=== PATIENT | male | born 1935 | race Caucasian/White ===

== ENCOUNTER 2016-10-07 21:44 | Emergency (ER) | payer OTHER ==
[2016-10-07 21:54] VITALS: BP 152/61; PULSE 98; TEMP 97.9; BMI 42.0
--- NOTE | 2016-10-07 22:17 | PDOC ---
History of Present Illness - General History Source: Patient Exam Limitations: No Limitations - History of Present Illness Initial Comments: 10/07/16 22:57 The patient is an 81-year-old male, with a significant past medical history of HTN, COPD, and hyperlipidemia, who presents to the ED with shortness of breath that began a few hours ago. The patient states that he was sitting down eating dinner when he suddenly began to experience difficulty breathing. Upon examination, the patient reports having a productive cough. Pt does use cpap at night and 4-5 pillows to go to sleep. The patient denies any chest pain, palpitations, or diaphoresis. He denies any abdominal pain, nausea, or vomiting. He denies any numbness or tingling or calf pain. He denies any fever or headache. Social Hx: Pt reports a 60 pack year history. Pt rarely consumes alcohol. He denies any drug use. <Jessica Irene - Last Filed: 10/07/16 22:57> - General History Source: Patient <Cooper Griffiths - Last Filed: 10/08/16 00:03> - General Chief Complaint: Shortness of Breath Stated Complaint: DIFF. BREATHING Time Seen by Provider: 10/07/16 21:59 Past History <Jessica Irene - Last Filed: 10/07/16 22:57> - Past Medical History Anemia: No Asthma: No Cancer: Yes (PROSTATE) Cardiac Disorders: No CVA: No COPD: No CHF: No Dementia: No Diabetes: No GI Disorders: No Disorders: No HTN: Yes Hypercholesterolemia: Yes Liver Disease: No Seizures: No Thyroid Disease: No - Surgical History Abdominal Surgery: No Appendectomy: No Cardiac Surgery: No Cholecystectomy: No Neurologic Surgery: No Orthopedic Surgery: No - Psycho/Social/Smoking Cessation Hx Suicidal Ideation: No Smoking History: Current every day smoker Have you smoked in the past 12 months: Yes Number of Cigarettes Smoked Daily: 20 Information on smoking cessation initiated: No 'Breaking Loose' booklet given: 06/11/14 Hx Alcohol Use: Yes (wine with dinner) Drug/Substance Use Hx: No Substance Use Type: None Hx Substance Use Treatment: No <Cooper Griffiths - Last Filed: 10/08/16 00:03> - Past Medical History Allergies/Adverse Reactions: Allergies Allergy/AdvReac Type Severity Reaction Status Date / Time No Known Drug Allergies Allergy Verified 10/07/16 21:54 Home Medications: Ambulatory Orders Aspirin [Ecotrin] 81 mg PO DAILY 10/07/16 Atorvastatin Ca [Lipitor] 20 mg PO HS 10/07/16 Benazepril HCl 20 mg PO DAILY 10/07/16 Cholecalciferol (Vitamin D3) [Vitamin D3 -] 1,000 unit PO DAILY 10/07/16 Diltiazem Cd [Cardizem Cd -] 240 mg PO DAILY 10/07/16 Folic Acid 1 mg PO DAILY 10/07/16 Methylprednisolone [Medrol Dose Esau] 4 mg PO ASDIR #21 tablet 10/07/16 Tiotropium [place] [Spiriva] 1 inh IH DAILY 10/07/16 Review of Systems - Review of Systems Able to Perform ROS?: Yes Comments:: 10/07/16 22:59 CONSTITUTIONAL: Absent: fever, chills, diaphoresis, generalized weakness, malaise, loss of appetite HEENT: Absent: rhinorrhea, nasal congestion, throat pain, throat swelling, difficulty swallowing, mouth swelling, ear pain, eye pain, visual Changes CARDIOVASCULAR: Absent: chest pain, syncope, palpitations, irregular heart rate, lightheadedness , peripheral edema RESPIRATORY: Present: cough, shortness of breath, dyspnea with exertion Absent: orthopnea, wheezing, stridor, hemoptysis GASTROINTESTINAL: Absent: abdominal pain, abdominal distension, nausea, vomiting, diarrhea, constipation, melena, hematochezia GENITOURINARY: Absent: dysuria, frequency, urgency, hesitancy, hematuria, flank pain, genital pain MUSCULOSKELETAL: Absent: myalgia, arthralgia, joint swelling SKIN: Absent: rash, itching, pallor HEMATOLOGIC/IMMUNOLOGIC: Absent: easy bleeding, easy bruising, lymphadenopathy, frequent infections ENDOCRINE: Absent: unexplained weight gain, unexplained weight loss, heat intolerance, cold intolerance NEUROLOGIC: Absent: headache, focal weakness or paresthesias, dizziness, unsteady gait, seizure, mental status changes, bladder or bowel incontinence PSYCHIATRIC: Absent: anxiety, depression, suicidal or homicidal ideation, hallucinations. <Jessica Irene - Last Filed: 10/07/16 22:57> *Physical Exam - Vital Signs Last Vital Signs Temp Pulse Resp BP Pulse Ox 97.9 F 98 H 20 152/61 98 10/07/16 21:47 10/07/16 21:47 10/07/16 21:47 10/07/16 21:47 10/07/16 21:47 - Physical Exam Comments: 10/07/16 22:59 GENERAL: Well developed, well nourished. Awake and alert. No acute distress. HEENT: Normocephalic, atraumatic. PERRLA, EOMI. No conjunctival pallor. Sclera are non- icteric. Moist mucous membranes. Oropharynx is clear. NECK: Supple. Full ROM. No JVD. Carotid pulses 2+ and symmetric, without bruits. No thyromegaly. No lymphadenopathy. CARDIOVASCULAR: Regular rate and rhythm. No murmurs, rubs, or gallops. Distal pulses are 2+ and symmetric. PULMONARY: (+)Decreased breath sounds bilaterally. No wheezing, rales or rhonchi. ABDOMINAL: Soft. Non-tender. Non-distended. No rebound or guarding. No organomegaly. Normoactive bowel sounds. MUSCULOSKELETAL Normal range of motion at all joints. No bony deformities or tenderness. No CVA tenderness. EXTREMITIES: (+)Edema of ankles. No cyanosis. No clubbing. No calf tenderness. SKIN: Warm and dry. Normal capillary refill. No rashes. No jaundice. NEUROLOGICAL: Alert, awake, appropriate. PSYCHIATRIC: Cooperative. Good eye contact. Appropriate mood and affect. <Jessica Irene - Last Filed: 10/07/16 22:57> - Vital Signs Last Vital Signs Temp Pulse Resp BP Pulse Ox 97.9 F 98 H 20 152/61 98 10/07/16 21:47 10/07/16 21:47 10/07/16 21:47 10/07/16 21:47 10/07/16 21:47 <Cooper Griffiths - Last Filed: 10/08/16 00:03> ED Treatment Course - LABORATORY CBC & Chemistry Diagram: 10/07/16 22:48 10/07/16 22:48 - ADDITIONAL ORDERS Additional order review: 10/07/16 22:48 RBC 5.06 MCV 92.4 MCHC 34.2 RDW 14.3 MPV 8.0 Neutrophils % 74.6 Lymphocytes % 13.9 Monocytes % 9.3 Eosinophils % 1.4 Basophils % 0.8 <Jessica Irene - Last Filed: 10/07/16 22:57> - LABORATORY CBC & Chemistry Diagram: 10/07/16 22:48 10/07/16 22:48 <Cooper Griffiths - Last Filed: 10/08/16 00:03> *DC/Admit/Observation/Transfer - Attestations Scribe Attestion: 10/07/16 23:01 Documentation prepared by Jessica Irene, acting as director global medical affairs for Cooper Griffiths MD. <Jessica Irene - Last Filed: 10/07/16 22:57> - Discharge Dispostion Admit: No <Cooper Griffiths - Last Filed: 10/08/16 00:03> Diagnosis at time of Disposition: COPD exacerbation - Discharge Dispostion Disposition: HOME - Prescriptions Prescriptions: Methylprednisolone [Medrol Dose Esau] 4 mg PO ASDIR #21 tablet - Referrals Referrals: Leopoldo Chapin MD [Primary Care Provider] - - Patient Instructions Printed Discharge Instructions: DI for Chronic Obstructive Pulmonary Disease Additional Instructions: Take medication as directed. Follow up with Dr. Us in the next few days.
[2016-10-07] MEDS ORDERED: methylPREDNISolone NA SUCC 125 MG/2 ML VIAL IVPB ONE (22:22)
[2016-10-07] MEDS ORDERED: ALBUTEROL SO4 2.5/IPRATROPIUM 0.5 INH SOL 3 ML VIAL.NEB. NEB ONE ×2 (22:22→22:59)
[2016-10-07] MEDS ORDERED: MAGNESIUM SULF 50% (8.12 MEQ/2 ML-1 GM VIAL) IVPB ONE (22:23)
[2016-10-07 22:52] LABS: BASOPHIL 0.8 % (0-2.0); EOSINOPHIL 1.4 % (0-4.5); MCH 31.6 pg (25.7-33.7); MCHC 34.2 g/dl (32.0-35.9); MEAN CELL VOLUME 92.4 fl (80-96); NEUTROPHILS 74.6 % (42.8-82.8); PLATELET COUNT 197 K/MM3 (134-434); RDW 14.3 % (11.9-15.9); WHITE BLOOD COUNT 14.7 K/mm3 (4.0-10.0)
[2016-10-07] MEDS ORDERED: MAGNESIUM SULF 50% (8.12 MEQ/2 ML-1 GM VIAL) ONE (22:59)
[2016-10-07] MEDS ORDERED: methylPREDNISolone NA SUCC 125 MG/2 ML VIAL ONE (23:00)
[2016-10-07 23:07] LABS: INR 1.06 (0.82-1.09); PROTHROMBIN TIME (PATIENT) 11.7 SEC (9.98-11.88)
[2016-10-07 23:21] LABS: ALBUMIN 3.7 g/dl (3.4-5.0); ANION GAP 8 (8-16); BILIRUBIN,TOTAL 0.4 mg/dL (0.2-1.0); CALCIUM 8.9 mg/dL (8.5-10.1); CO2 30 mmol/L (21-32); CREATININE 0.8 mg/dL (0.7-1.3); GLUCOSE,RANDOM 123 mg/dL (74-106); SGOT/AST 18 U/L (15-37); SGPT/ALT 30 U/L (12-78); TOT PROT 7.4 g/dl (6.4-8.2)
[2016-10-07 23:24] LABS: ALK PHOS 122 U/L (45-117); CPK 120 IU/L (39-308); TROPONIN I < 0.02 ng/ml (0.00-0.05)
== END 2016-10-08 00:22 | disposition home or self-care (01) ==
LOC: JER 21:44
PROC: 3E033GC Introduction of Other Therapeutic Substance into Peripheral Vein, Percutaneous Approach (ICD-10-PCS; principal; 2016-10-07)
PROC: 3E0F7GC Introduction of Other Therapeutic Substance into Respiratory Tract, Via Natural or Artificial Opening (ICD-10-PCS; 2016-10-07)
DX: J44.1 Chronic obstructive pulmonary disease with (acute) exacerbation (principal); Z85.46 Personal history of malignant neoplasm of prostate; I10 Essential (primary) hypertension; E78.00 Pure hypercholesterolemia, unspecified
CPT/HCPCS: 36415; 71010-TC; 80053; 83735; 83880; 84484; 85025; 85610; 99282-25

== ENCOUNTER 2020-08-07 10:11 | Observation (INO) | payer OTHER ==
[2020-08-07 10:44] VITALS: BMI 45.7
[2020-08-07 11:55] LABS: BASO % 0.2 % (0-2.0); EOS % 1.7 % (0-4.5); HEMATOCRIT 38.4 % (35.4-49); LYMPH % 18.3 % (8-40); MCH 29.2 pg (25.7-33.7); MCHC 33.9 g/dl (32.0-35.9); MEAN CELL VOLUME 86.2 fl (80-96); MEAN PLT VOLUME 7.5 fl (7.5-11.1); MONO % 9.3 % (3.8-10.2); NEUT % 70.5 % (42.8-82.8); PLATELET COUNT 223 10^3/uL (134-434); RBC 4.45 M/mm3 (4.00-5.60); RDW 15.3 % (11.9-15.9); WHITE BLOOD COUNT 13.6 K/mm3 (4.0-10.0)
[2020-08-07 12:09] LABS: INR 1.06 (0.83-1.09); PROTHROMBIN TIME (PATIENT) 12.8 SEC (9.7-13.0)
[2020-08-07 12:12] LABS: ACTIVATED PTT 32.4 SECONDS (25.2-36.5)
[2020-08-07 12:20] LABS: CHLORIDE 104 mmol/L (98-107); SODIUM 138 mmol/L (136-145)
[2020-08-07 12:23] LABS: ALBUMIN 3.5 g/dl (3.4-5.0); ANION GAP 10 MMOL/L (8-16); BLOOD UREA NITROGEN 26.6 mg/dL (7-18); CO2 23 mmol/L (21-32); GLUCOSE,RANDOM 103 mg/dL (74-106)
[2020-08-07 12:27] LABS: CREATININE 1.2 mg/dL (0.55-1.3); SGOT/AST 39 U/L (15-37)
[2020-08-07 12:28] LABS: BILIRUBIN,TOTAL 0.6 mg/dL (0.2-1); TOT PROT 7.5 g/dl (6.4-8.2)
[2020-08-07 12:29] LABS: ALK PHOS 160 U/L (45-117)
[2020-08-07] MEDS ORDERED: AZITHROMYCIN IVPB 500 MG in DEXTROSE 5%-WATER - 250 ML IVPB ONE (12:41)
[2020-08-07 13:16] LABS: SGPT/ALT 23 U/L (13-61)
[2020-08-07 13:20] LABS: PH,URINE 5.5 (5.0-8.0); URINE APPEARANCE CLEAR; URINE BILIRUBIN NEGATIVE (NEGATIVE); URINE COLOR YELLOW; URINE GLUCOSE (UA) NEGATIVE (NEGATIVE); URINE KETONE NEGATIVE (NEGATIVE); URINE LEUK ESTERASE NEGATIVE (NEGATIVE); URINE NITRITE NEGATIVE (NEGATIVE); URINE PROTEIN NEGATIVE (NEGATIVE)
[2020-08-07] MEDS ORDERED: CEFTRIAXONE 1 GM/50 ML BAG ONE (13:45)
[2020-08-07] MEDS ORDERED: CEFTRIAXONE 1,000 MG in DEXTROSE 5%-WATER - 50 ML IVPB ONE (14:05)
[2020-08-07] MEDS ORDERED: AZITHROMYCIN IVPB 500 MG/250 ML BAG IVPB ONE (15:24)
[2020-08-07] MEDS ORDERED: ATORVASTATIN CA 40 MG TABLET (FP) ONE (21:57)
[2020-08-07] MEDS ORDERED: ATORVASTATIN CA 40 MG TABLET (FP) PO SCH (22:00)
[2020-08-07] MEDS ORDERED: PATIENT'S OWN MEDICATION (NON-FORMULARY) (Icosapent Ethyl [Vascepa] 1 GM Capsule) PO SCH (22:00)
[2020-08-08 07:39] LABS: HEMATOCRIT 41.7 % (35.4-49); HEMOGLOBIN 13.9 GM/dL (11.7-16.9); MCH 29.2 pg (25.7-33.7); MCHC 33.4 g/dl (32.0-35.9); MEAN CELL VOLUME 87.3 fl (80-96); MEAN PLT VOLUME 7.5 fl (7.5-11.1); PLATELET COUNT 221 10^3/uL (134-434); RBC 4.77 M/mm3 (4.00-5.60); RDW 15.6 % (11.9-15.9); WHITE BLOOD COUNT 12.1 K/mm3 (4.0-10.0)
[2020-08-08 07:55] LABS: CHLORIDE 103 mmol/L (98-107); SODIUM 137 mmol/L (136-145)
[2020-08-08 07:59] LABS: ALBUMIN 3.8 g/dl (3.4-5.0); ANION GAP 9 MMOL/L (8-16); CALCIUM 9.5 mg/dL (8.5-10.1); CO2 25 mmol/L (21-32); GLUCOSE,RANDOM 103 mg/dL (74-106)
[2020-08-08 08:02] LABS: BILIRUBIN,TOTAL 0.7 mg/dL (0.2-1); PHOSPHOROUS 3.3 mg/dL (2.5-4.9); SGOT/AST 25 U/L (15-37); SGPT/ALT 23 U/L (13-61)
[2020-08-08 08:04] LABS: ALK PHOS 139 U/L (45-117); TOT PROT 7.7 g/dl (6.4-8.2)
[2020-08-08] MEDS ORDERED: ASPIRIN COATED 81 MG TABLET.EC ONE (09:24)
[2020-08-08] MEDS ORDERED: LOSARTAN POTASSIUM 50 MG TABLET ONE (09:25)
[2020-08-08] MEDS ORDERED: FOLIC ACID 1 MG TABLET (FP) ONE (09:25)
[2020-08-08] MEDS ORDERED: HYDROCHLOROTHIAZIDE 25 MG TABLET (FP) ONE (09:25)
[2020-08-08] MEDS ORDERED: dilTIAZem HCL 60 MG TABLET ONE (09:25)
[2020-08-08] MEDS ORDERED: PT OWN MED DRAWER 7, Y5N ONE (09:27)
[2020-08-08 09:58] VITALS: TEMP 97.4
[2020-08-08] MEDS ORDERED: FOLIC ACID 1 MG TABLET (FP) PO SCH (10:00)
[2020-08-08] MEDS ORDERED: HYDROCHLOROTHIAZIDE 25 MG TABLET (FP) PO SCH (10:00)
[2020-08-08] MEDS ORDERED: LOSARTAN POTASSIUM 50 MG TABLET PO SCH (10:00)
[2020-08-08] MEDS ORDERED: ASPIRIN COATED 81 MG TABLET.EC PO SCH (10:00)
[2020-08-08] MEDS ORDERED: TIOTROPIUM BROMIDE 2.5 MCG (SPIRIVA) RESPIMAT INHALER IH SCH (10:00)
[2020-08-08 13:18] VITALS: BP 146/58; PULSE 99
[2020-08-08 13:41] LABS: CHOLESTEROL 125 mg/dL (50-200); HDL CHOLESTEROL 38 mg/dL (40-60); LDL CHOLESTEROL (ONLY DFH) 69 mg/dl (5-100); TRIGLYCERIDES 91 mg/dL (0-150)
== END 2020-08-08 13:30 | disposition home or self-care (01) ==
LOC: JER 10:11 → JERBED 12:41 → J4S 08-08 13:31
PROVIDERS: ATTEND Internal Medicine
PROC: 3E03329 Introduction of Other Anti-infective into Peripheral Vein, Percutaneous Approach (ICD-10-PCS; principal; 2020-08-07)
PROC: 3E0F7SF Introduction of Other Gas into Respiratory Tract, Via Natural or Artificial Opening (ICD-10-PCS; 2020-08-07)
DX: R07.89 Other chest pain (principal); J18.9 Pneumonia, unspecified organism; I10 Essential (primary) hypertension; E78.5 Hyperlipidemia, unspecified; E66.01 Morbid (severe) obesity due to excess calories; Z68.42 Body mass index [BMI] 45.0-49.9, adult; Z85.46 Personal history of malignant neoplasm of prostate; J44.9 Chronic obstructive pulmonary disease, unspecified; G47.33 Obstructive sleep apnea (adult) (pediatric); Z99.89 Dependence on other enabling machines and devices; Z87.891 Personal history of nicotine dependence; Z79.82 Long term (current) use of aspirin
CPT/HCPCS: 36415; 71045-TC-FY; 71275-TC; 80053; 80061; 81003; 82550; 82553; 83036; 83735; 84100; 84443; 84484; 85025; 85027; 85610; 85730; 87077; 87086; 93005; 93010; 93306-TC; 94640; 96365; 96367; 99285-25; C9803; G0378; Q9967; U0003; U0005

== ENCOUNTER 2021-03-28 00:53 | Observation (INO) | payer OTHER ==
[2021-03-28 02:08] LABS: BASO % 0.3 % (0-2.0); EOS % 0.4 % (0-4.5); HEMATOCRIT 33.7 % (35.4-49); HEMOGLOBIN 11.1 GM/dL (11.7-16.9); LYMPH % 7.9 % (8-40); MCH 29.3 pg (25.7-33.7); MCHC 32.9 g/dl (32.0-35.9); MEAN PLT VOLUME 7.7 fl (7.5-11.1); NEUT % 83.4 % (42.8-82.8); PLATELET COUNT 220 10^3/uL (134-434); RBC 3.79 M/mm3 (4.00-5.60); RDW 17.5 % (11.9-15.9); WHITE BLOOD COUNT 12.9 K/mm3 (4.0-10.0)
[2021-03-28 02:17] LABS: INR 1.14 (0.83-1.09); PROTHROMBIN TIME (PATIENT) 13.1 SEC (9.7-13.0)
[2021-03-28 02:19] LABS: ACTIVATED PTT 30.8 SECONDS (25.2-36.5)
[2021-03-28 02:34] LABS: CALCIUM 9.1 mg/dL (8.5-10.1)
[2021-03-28 02:35] LABS: ALBUMIN 3.5 g/dl (3.4-5.0); BLOOD UREA NITROGEN 25.4 mg/dL (7-18)
[2021-03-28 02:38] LABS: CREATININE 1.2 mg/dL (0.55-1.3)
[2021-03-28 02:40] LABS: BILIRUBIN,TOTAL 0.3 mg/dL (0.2-1); TOT PROT 7.3 g/dl (6.4-8.2)
[2021-03-28 06:02] LABS: HEMATOCRIT 32.5 % (35.4-49); HEMOGLOBIN 10.5 GM/dL (11.7-16.9); MCH 29.1 pg (25.7-33.7); MCHC 32.5 g/dl (32.0-35.9); MEAN CELL VOLUME 89.6 fl (80-96); PLATELET COUNT 216 10^3/uL (134-434); RBC 3.63 M/mm3 (4.00-5.60); RDW 17.4 % (11.9-15.9)
[2021-03-28] MEDS ORDERED: ONDANSETRON 4 MG/2 ML VIAL IVPUSH PRN (15:08)
[2021-03-28] MEDS ORDERED: ACETAMINOPHEN 325 MG TABLET (FP) PO PRN (15:08)
[2021-03-28 15:29] VITALS: BMI 42.7
[2021-03-28] MEDS ORDERED: SENNOSIDES 8.6MG TABLET (FP) PO PRN (18:41)
[2021-03-28] MEDS ORDERED: DOCUSATE NA 100 MG/10 ML UNIT-DOSE CUPS PO PRN (18:42)
[2021-03-28] MEDS ORDERED: LACTULOSE 20 GM/30 ML UDC (FOR ORAL USE ONLY) PO ONE (18:43)
[2021-03-28] MEDS: METOPROLOL TARTRATE 25 MG TABLET (FP) PO SCH (21:36)
[2021-03-28] MEDS: ATORVASTATIN CA 80 MG TABLET (FP) PO SCH (21:36)
[2021-03-28] MEDS: FAMOTIDINE 20 MG TABLET PO SCH (21:36)
[2021-03-29] MEDS: SODIUM CHLORIDE 1,000 ML IV SCH (09:09)
[2021-03-29] MEDS: FAMOTIDINE 20 MG TABLET PO SCH (09:09)
[2021-03-29] MEDS: FOLIC ACID 1 MG TABLET (FP) PO SCH (09:09)
[2021-03-29] MEDS: METOPROLOL TARTRATE 25 MG TABLET (FP) PO SCH ×2 (09:09→22:41)
[2021-03-29 09:30] LABS: HEMATOCRIT 32.1 % (35.4-49); HEMOGLOBIN 10.7 GM/dL (11.7-16.9); MCH 29.7 pg (25.7-33.7); MCHC 33.2 g/dl (32.0-35.9); MEAN CELL VOLUME 89.5 fl (80-96); MEAN PLT VOLUME 7.5 fl (7.5-11.1); PLATELET COUNT 210 10^3/uL (134-434); RBC 3.59 M/mm3 (4.00-5.60); WHITE BLOOD COUNT 11.5 K/mm3 (4.0-10.0)
[2021-03-29 09:46] LABS: CALCIUM 9.4 mg/dL (8.5-10.1)
[2021-03-29 09:47] LABS: BLOOD UREA NITROGEN 18.3 mg/dL (7-18)
[2021-03-29] MEDS ORDERED: PANTOPRAZOLE SODIUM 40 MG VIAL IVPUSH SCH (10:00)
[2021-03-29] MEDS ORDERED: POLYETHYLENE GLYCOL (HEALTHYLAX) 3350 17 GM PACKET PO SCH (10:00)
[2021-03-29] MEDS ORDERED: CLOPIDOGREL BISULFATE 75 MG TABLET (FP) PO SCH ×2 (10:00→12:15)
[2021-03-29] MEDS ORDERED: PSYLLIUM 5.85 GM PACKET PO SCH (10:00)
[2021-03-29] MEDS: MINERAL OIL ENEMA 133 ML ENEMA PR SCH (11:28)
[2021-03-29] MEDS: PANTOPRAZOLE 40 MG TABLET PO SCH (11:28)
[2021-03-29] MEDS ORDERED: FUROSEMIDE 40 MG TABLET (FP) PO SCH (12:15)
[2021-03-29] MEDS ORDERED: ASPIRIN 81 MG CHEWABLE TABLETS PO SCH (12:15)
[2021-03-29] MEDS: HYDROCORTISONE 2.5% TOPICAL CREAM 30 GM TUBE TP SCH ×2 (12:48→22:45)
[2021-03-29] MEDS: POLYETHYLENE GLYCOL (HEALTHYLAX) 3350 17 GM PACKET PO SCH ×2 (15:34→22:50)
[2021-03-29] MEDS: ATORVASTATIN CA 80 MG TABLET (FP) PO SCH (22:41)
[2021-03-30] MEDS: SODIUM CHLORIDE 1,000 ML IV SCH (01:00)
[2021-03-30] MEDS: POLYETHYLENE GLYCOL (HEALTHYLAX) 3350 17 GM PACKET PO SCH ×2 (06:19→13:26)
[2021-03-30 08:17] LABS: BASO % 0.5 % (0-2.0); EOS % 2.3 % (0-4.5); HEMATOCRIT 31.3 % (35.4-49); HEMOGLOBIN 10.2 GM/dL (11.7-16.9); LYMPH % 15.6 % (8-40); MCH 29.8 pg (25.7-33.7); MCHC 32.6 g/dl (32.0-35.9); MEAN CELL VOLUME 91.5 fl (80-96); MONO % 8.2 % (3.8-10.2); NEUT % 73.4 % (42.8-82.8); PLATELET COUNT 196 10^3/uL (134-434); RBC 3.42 M/mm3 (4.00-5.60); RDW 17.5 % (11.9-15.9); WHITE BLOOD COUNT 10.3 K/mm3 (4.0-10.0)
[2021-03-30 08:36] LABS: BLOOD UREA NITROGEN 13.6 mg/dL (7-18); CALCIUM 8.8 mg/dL (8.5-10.1)
[2021-03-30 08:41] LABS: BILIRUBIN,TOTAL 0.7 mg/dL (0.2-1); CREATININE 0.9 mg/dL (0.55-1.3); PHOSPHOROUS 2.8 mg/dL (2.5-4.9)
[2021-03-30 08:43] LABS: TOT PROT 6.2 g/dl (6.4-8.2)
[2021-03-30] MEDS ORDERED: ASPIRIN 81 MG CHEWABLE TABLETS PO SCH (10:00)
[2021-03-30] MEDS ORDERED: CLOPIDOGREL BISULFATE 75 MG TABLET (FP) PO SCH (10:00)
[2021-03-30] MEDS: METOPROLOL TARTRATE 25 MG TABLET (FP) PO SCH (10:20)
[2021-03-30] MEDS: PANTOPRAZOLE 40 MG TABLET PO SCH (10:23)
[2021-03-30] MEDS: FOLIC ACID 1 MG TABLET (FP) PO SCH (10:23)
[2021-03-30] MEDS: HYDROCORTISONE 2.5% TOPICAL CREAM 30 GM TUBE TP SCH (10:39)
[2021-03-30] MEDS: MINERAL OIL ENEMA 133 ML ENEMA PR SCH ×2 (10:39→13:11)
[2021-03-30 14:00] VITALS: BP 145/68; PULSE 72; TEMP 97.4
[2021-03-31] MEDS ORDERED: PANTOPRAZOLE 20 MG TABLET PO SCH (10:00)
== END 2021-03-30 16:15 | disposition home or self-care (01) ==
LOC: JER 00:53 → JERBED 07:11 → J7W 13:47
PROVIDERS: ADMIT Internal Medicine
PROC: 3E033GC Introduction of Other Therapeutic Substance into Peripheral Vein, Percutaneous Approach (ICD-10-PCS; principal; 2021-03-28)
PROC: 3E0337Z Introduction of Electrolytic and Water Balance Substance into Peripheral Vein, Percutaneous Approach (ICD-10-PCS; 2021-03-28)
DX: K59.00 Constipation, unspecified (principal); K62.5 Hemorrhage of anus and rectum; E78.5 Hyperlipidemia, unspecified; G47.33 Obstructive sleep apnea (adult) (pediatric); I35.0 Nonrheumatic aortic (valve) stenosis; I11.0 Hypertensive heart disease with heart failure; I25.10 Atherosclerotic heart disease of native coronary artery without angina pectoris; Z95.5 Presence of coronary angioplasty implant and graft; Z85.46 Personal history of malignant neoplasm of prostate; E66.01 Morbid (severe) obesity due to excess calories; Z68.41 Body mass index [BMI] 40.0-44.9, adult; Z87.891 Personal history of nicotine dependence; Z95.2 Presence of prosthetic heart valve; D64.9 Anemia, unspecified; Z79.01 Long term (current) use of anticoagulants; Z99.89 Dependence on other enabling machines and devices
CPT/HCPCS: 36415; 74018-TC-FY; 74177-TC; 76700-TC; 80048; 80053; 82272; 82607; 82728; 82746; 82977; 83540; 83550; 83615; 83735; 84100; 84443; 84484; 85025; 85027; 85610; 85730; 86850; 86900; 86901; 93005; 93010; 96361; 96374; 99285-25; C9803; G0378; Q9967; U0003; U0005

== ENCOUNTER 2024-05-31 12:40 | Emergency (ER) | payer OTHER ==
[2024-05-31 13:01] VITALS: TEMP 98; BMI 34.0
[2024-05-31] MEDS ORDERED: ACETAMINOPHEN 325 MG TABLET (FP) ONE (13:38)
[2024-05-31] MEDS: ACETAMINOPHEN 325 MG TABLET (FP) PO ONE (13:40)
[2024-05-31] MEDS ORDERED: DIPHTH,PERTUSS(ACELL),TET 0.5 ML DISP.SYRIN IM ONE (15:11)
[2024-05-31] MEDS: DIPHTH,PERTUSS(ACELL),TET 0.5 ML DISP.SYRIN IM ONE (15:14)
[2024-05-31 15:25] VITALS: BP 144/62; PULSE 72; RESP 20
== END 2024-05-31 15:28 | disposition home or self-care (01) ==
LOC: FER 12:40
PROC: 0HQFXZZ Repair Right Hand Skin, External Approach (ICD-10-PCS; principal; 2024-05-31)
PROC: 3E0234Z Introduction of Serum, Toxoid and Vaccine into Muscle, Percutaneous Approach (ICD-10-PCS; 2024-05-31)
DX: S61.211A Laceration without foreign body of left index finger without damage to nail, initial encounter (principal); S09.90XA Unspecified injury of head, initial encounter; W10.1XXA Fall (on)(from) sidewalk curb, initial encounter; Z23 Encounter for immunization
CPT/HCPCS: 12001-25; 70450-TC; 90471; 90715; 99284-25

== ENCOUNTER 2024-06-07 10:49 | Emergency (ER) | payer OTHER ==
[2024-06-07 11:14] VITALS: BP 119/51; PULSE 70; RESP 19; TEMP 97.5; BMI 33.7
== END 2024-06-07 11:15 | disposition home or self-care (01) ==
LOC: FER 10:49
DX: S61.211D Laceration without foreign body of left index finger without damage to nail, subsequent encounter (principal)
CPT/HCPCS: 99282-25